=== PATIENT | male | born 1950 | race Caucasian/White ===

== ENCOUNTER 2017-01-19 05:13 | Emergency (ER) | payer MEDICARE, BC ==
[2017-01-19] MEDS ORDERED: TEST5GEL TOP (05:30)
[2017-01-19] MEDS ORDERED: PRAV80TA2 PO (05:30)
[2017-01-19] MEDS ORDERED: ADENOSINE 6MG/2ML INJECTION (J0153) As Ordered ONE ×2 (05:49→05:58)
[2017-01-19] MEDS ORDERED: ADENOSINE 6MG/2ML INJECTION (J0153) IV STA ×2 (06:01)
[2017-01-19 06:09] VITALS: BP 115/79
[2017-01-19] MEDS ORDERED: CARD120C3 PO (06:13)
[2017-01-19 06:35] LABS: BASO # 0.1 K/mm3 (0.0-0.2); BASO % 0.5 % (0.0-1.0); EOS # 0.3 K/mm3 (0.0-0.50); EOS % 3.1 % (0.0-3.0); LARGE UNSTAINED CELL # 0.1 K/mm3 (0.0-0.4); LARGE UNSTAINED CELL % 1.3 % (0.0-4.0); LYMPH # 1.4 K/mm3 (1.5-4.5); LYMPH % 12.4 % (24.0-44.0); MEAN CORPUSCULAR HEMOGLOBIN 31.7 pg (27.0-33.0); MEAN CORPUSCULAR HGB CONC 34.7 g/dl (32.0-36.5); MEAN CORPUSCULAR VOLUME 91.2 fl (80.0-96.0); MONO # 0.6 K/mm3 (0.0-0.8); MONO % 5.8 % (0.0-5.0); NEUTROPHILS # 8.1 K/mm3 (1.8-7.7); NEUTROPHILS % 76.9 % (36.0-66.0); PLATELET COUNT, AUTOMATED 285 k/mm3 (150-450); RED CELL DISTRIBUTION WIDTH 12.4 % (11.5-14.5); WHITE BLOOD COUNT 10.5 K/mm3 (4.0-10.0)
[2017-01-19 07:08] LABS: ANION GAP 11 MEQ/L (8-16); BLOOD UREA NITROGEN 18 MG/DL (7-18); CALCIUM LEVEL 8.8 MG/DL (8.8-10.2); CARBON DIOXIDE LEVEL 21 MEQ/L (21-32); CHLORIDE LEVEL 106 MEQ/L (98-107); CREATININE FOR GFR 1.04 MG/DL (0.70-1.30); GLOMERULAR FILTRATION RATE > 60.0 (>49); GLUCOSE, FASTING 121 MG/DL (80-110); POTASSIUM SERUM 3.9 MEQ/L (3.5-5.1); SODIUM LEVEL 138 MEQ/L (136-145); T UPTAKE 37 % (33-40); THYROXINE (T4) 7.9 UG/DL (4.5-12.0)
[2017-01-19 07:15] VITALS: BP 112/77
--- NOTE | 2017-01-19 21:35 | ECGEPIP ---
Stationary ECG Study [facility] - ED Test Date: 2017-01-19 Pat Name: ABEBA PERRY Department: Room: - Gender: M [employer]: tk : 1950 Requested By: KARIN ELENA Order Number: [id number] Reading MD: Sunita Blair Measurements Intervals [place] Rate: 175 P: [place]: 0 QRS: 27 QRSD: 96 T: 3 QT: 255 QTc: 436 Interpretive Statements SUPRAVENTRICULAR TACHYCARDIA MODERATE ST DEPRESSION NO PRIOR FOR COMPARISON Electronically Signed On 01-19-2017 21:35:10 EDT by Sunita Blair
== END 2017-01-19 07:39 | disposition home or self-care (01) ==
LOC: M ED 05:13
DX: R00.0 Tachycardia, unspecified (principal); E78.5 Hyperlipidemia, unspecified; Z79.899 Other long term (current) drug therapy
CPT/HCPCS: 80048; 84436; 84443; 84479; 85025; 93005; 96374; 99284; J0153

== ENCOUNTER 2018-01-21 21:37 | Emergency (ER) | payer MEDICARE, BC ==
[2018-01-21] MEDS: NS 500 ML IV (22:22)
[2018-01-21 22:29] LABS: BASO % 0.5 % (0.0-1.0); EOS # 0.3 10^3/uL (0.0-0.50); EOS % 3.3 % (0.0-3.0); HEMATOCRIT 41.8 % (42.0-52.0); HEMOGLOBIN 14.4 g/dl (13.5-17.5); IMMATURE GRANULOCYTE % 0.4 % (0-3.0); LYMPH # 1.6 10^3/uL (1.5-4.5); LYMPH % 21.2 % (24.0-44.0); MEAN CORPUSCULAR HEMOGLOBIN 31.9 pg (27.0-33.0); MEAN CORPUSCULAR HGB CONC 34.4 g/dl (32.0-36.5); MEAN CORPUSCULAR VOLUME 92.5 fl (80.0-96.0); MONO # 0.8 10^3/uL (0.0-0.8); MONO % 10.4 % (0.0-5.0); NEUTROPHILS # 4.9 10^3/uL (1.8-7.7); NEUTROPHILS % 64.2 % (36.0-66.0); PLATELET COUNT, AUTOMATED 239 10^3/uL (150-450); RED BLOOD COUNT 4.52 10^6/uL (4.30-6.10); RED CELL DISTRIBUTION WIDTH 12.9 % (11.5-14.5); WHITE BLOOD COUNT 7.6 10^3/uL (4.0-10.0)
[2018-01-21 22:52] LABS: ANION GAP 10 MEQ/L (8-16); BLOOD UREA NITROGEN 16 MG/DL (7-18); CALCIUM LEVEL 8.3 MG/DL (8.8-10.2); CARBON DIOXIDE LEVEL 23 MEQ/L (21-32); CHLORIDE LEVEL 111 MEQ/L (98-107); CPK CREATINE PHOSPHOKINASE 322 U/L (39-308); CREATININE FOR GFR 1.14 MG/DL (0.70-1.30); FREE THYROXINE INDEX 3.4 % (1.4-3.8); GLOMERULAR FILTRATION RATE > 60.0 (>49); GLUCOSE, FASTING 117 MG/DL (70-100); SODIUM LEVEL 144 MEQ/L (136-145); T UPTAKE 38 % (33-40); TROPONIN I < 0.02 NG/ML (< 0.10)
[2018-01-21 22:57] LABS: CK-MB VALUE MASS 3.9 NG/ML (<3.6); MB/CK RELATIVE INDEX 1.21 (< OR =4)
== END 2018-01-21 23:20 | disposition home or self-care (01) ==
LOC: M ED 21:37
DX: E86.0 Dehydration (principal); I47.1 Supraventricular tachycardia; E78.5 Hyperlipidemia, unspecified; Z79.899 Other long term (current) drug therapy
CPT/HCPCS: 93005